=== PATIENT | female | born 1970 | race Caucasian/White ===

== ENCOUNTER → 2016-06-16 | Outpatient (CLI) | payer BC ==
--- NOTE | 2016-06-16 16:39 | Diagnostic Imaging Report ---
INDICATION: Digital mammogram bilateral screening. This study was compared to the prior exams of 03/24/15, 01/29/14 and 08/30/12. At this time, there are no current complaints. The current study was also evaluated with a Computer Aided Detection (CAD) system. FINDINGS: There are scattered fibroglandular densities in both breasts which could obscure a lesion. Overall, there does not appear to have been any significant change when compared to the prior exam. No primary or secondary sign of malignancy is noted. IMPRESSION: There is no radiographic evidence for malignancy. ACR BI-RADS Category 1: Negative. Result letter will be mailed to the patient. Note: At least 10% of breast cancer is not imaged by mammography. Dictated by: Dictated on workstation # [id number]
== END ==
LOC: RAD 07:14
PROVIDERS: ATTEND Obstetrics & Gynecology
DX: Z12.31 Encounter for screening mammogram for malignant neoplasm of breast (principal)

== ENCOUNTER → 2017-06-22 | Outpatient (CLI) | payer BC ==
--- NOTE | 2017-06-22 10:06 | Diagnostic Imaging Report ---
Indication: Routine screening. Comparison: Comparison is made with prior exams from 06/16/2016 and 03/24/2015. The current study was also evaluated with a Computer Aided Detection (CAD) system. Findings: Scattered fibroglandular densities are identified bilaterally. The parenchymal pattern is stable. No mass or malignant-appearing microcalcifications are seen. The axillae are unremarkable. Impression: BI-RADS category 1 No mammographic features suspicious for malignancy are identified. ACR BI-RADS Category 1: Negative. Result letter will be mailed to the patient. Note: At least 10% of breast cancer is not imaged by mammography. Dictated by: Dictated on workstation # [id number]
== END ==
LOC: RAD 08:18
PROVIDERS: ATTEND Obstetrics & Gynecology
DX: Z12.31 Encounter for screening mammogram for malignant neoplasm of breast (principal)
CPT/HCPCS: 77067

== ENCOUNTER → 2018-06-30 | Outpatient (CLI) | payer BC ==
--- NOTE | 2018-06-30 21:16 | Diagnostic Imaging Report ---
INDICATION: Routine screening. Comparison is made with prior mammogram from 06/22/2017 and 06/16/2016. 2-D and 3-D bilateral screening mammography was performed with CAD. The current study was also evaluated with a Computer Aided Detection (CAD) system. FINDINGS: Scattered fibroglandular densities are identified bilaterally. There is a density in the central right breast at the nipple line on the CC view which appears more prominent than prior exam. This may represent superimposed tissue but additional views are recommended. This appears to be inferiorly located on the MLO view. Left breast is unremarkable. No suspicious calcifications are seen. The axillae are unremarkable. IMPRESSION: Right breast density. Additional views including spot compression view, rolled CC views and mediolateral views are recommended for further evaluation. ACR BI-RADS Category 0: Incomplete. (Needs additional imaging evaluation). Result letter will be mailed to the patient. Note: At least 10% of breast cancer is not imaged by mammography. Dictated by: Dictated on workstation # [id number]
== END ==
LOC: RAD 07:48
PROVIDERS: ATTEND Obstetrics & Gynecology
DX: Z12.31 Encounter for screening mammogram for malignant neoplasm of breast (principal); R92.2 Inconclusive mammogram
CPT/HCPCS: 77067

== ENCOUNTER → 2018-07-06 | Outpatient (CLI) | payer BC ==
--- NOTE | 2018-07-06 19:12 | Diagnostic Imaging Report ---
INDICATION: Right breast density. Patient presents for additional views. COMPARISON: Correlation is made with the recent screening study from 06/30/2018. TECHNIQUE: Unilateral right 2D and 3D diagnostic mammography was performed including spot compression CC, rolled CC, and 90 degree lateral views. The current study was also evaluated with a Computer Aided Detection (CAD) system. FINDINGS: Density noted in the right breast on the CC view centrally appears to show normal dispersion with additional views consistent with superimposed tissue. No underlying mass lesion is seen. No suspicious calcifications are identified. IMPRESSION: Additional views fail to demonstrate a discrete mass. Patient may return to routine annual screening mammography. ACR BI-RADS Category 1: Negative. Result letter will be mailed to the patient. Note: At least 10% of breast cancer is not imaged by mammography. Dictated by: Dictated on workstation # [id number]
== END ==
LOC: RAD 13:00
PROVIDERS: ATTEND Obstetrics & Gynecology
DX: R92.2 Inconclusive mammogram (principal)

== ENCOUNTER 2018-07-12 05:34 | Outpatient (CLI) | payer BC ==
[~2018-07-12] VITALS: Ht 172.7 cm; Wt 111.1 kg
[2018-07-12] MEDS ORDERED: METO-387 PO (12:05)
[2018-07-12] MEDS ORDERED: ATOR40TA70 PO (12:05)
[2018-07-14] MEDS ORDERED: OXYC1TAB87 PO (14:29)
== END 2018-07-12 12:21 | disposition home or self-care (01) ==
LOC: PREOP 05:34
PROVIDERS: ATTEND Obstetrics & Gynecology
DX: Z01.818 Encounter for other preprocedural examination (principal)

== ENCOUNTER 2018-07-14 11:49 | Day surgery (SDC) | payer BC ==
[~2018-07-14] VITALS: Ht 172.7 cm; Wt 111.1 kg
[~2018-07-14 11:49] MED LIST: ATOR40TA70 PO; METO-387 PO
[2018-07-14] MEDS ORDERED: LACTATED RINGERS 1,000 ML IV PRN (12:28)
[2018-07-14] MEDS ORDERED: ceFAZolin INJECTION 1,000 MG in NS (IVPB) 50 ML IV ONE (12:30)
[2018-07-14] MEDS ORDERED: ceFAZolin 1,000 MG/SWFI 10 ML IV PUSH IV ONE ×2 (12:45)
[2018-07-14 12:47] LABS: BASOPHILS % (AUTO) 1 % (0-10); EOSINOPHILS # (AUTO) 0.1 10^3/uL (0.0-0.3); EOSINOPHILS % (AUTO) 1 % (0-10); HEMATOCRIT 40 % (35-52); HEMOGLOBIN 13.2 G/DL (11.5-16.0); LYMPHOCYTES # (AUTO) 1.5 X 10^3 (1.0-4.0); LYMPHOCYTES % (AUTO) 25 % (12-44); MEAN CORPUSCULAR HEMOGLOBIN 30 PG (25-34); MEAN CORPUSCULAR HGB CONC 33 G/DL (32-36); MEAN CORPUSCULAR VOLUME 90 FL (80-99); MEAN PLATELET VOLUME 10.2 FL (7.4-10.4); MONOCYTES # (AUTO) 0.5 X 10^3 (0.0-1.0); MONOCYTES % (AUTO) 8 % (0-12); NEUTROPHILS % (AUTO) 65 % (42-75); PLATELET COUNT 244 10^3/uL (130-400); RED CELL DISTRIBUTION WIDTH 13.6 % (10.0-14.5); WHITE BLOOD COUNT 6.1 10^3/uL (4.3-11.0)
[2018-07-14] MEDS ORDERED: ONDANSETRON 4 MG/2 ML (SDV) Z0FRAN ONE (12:48)
[2018-07-14] MEDS ORDERED: DEXAMETHASONE 10 MG/ML (DECADRON) 1 ML VIAL ONE (12:48)
[2018-07-14] MEDS ORDERED: SEVOFLURANE (ULTANE) 15 ML INHAL SOLN ONE ×3 (12:48→14:48)
[2018-07-14] MEDS ORDERED: LIDOCAINE PF 2% 5 ML (XYLOCAINE) VIAL ONE (12:48)
[2018-07-14] MEDS ORDERED: proPOfol 200 MG/20 ML (DIPRIVAN) VIAL IV ONE (12:48)
[2018-07-14] MEDS ORDERED: MIDAZOLAM 2 MG/2 ML (VERSED) VIAL ONE (12:49)
[2018-07-14] MEDS ORDERED: fentaNYL INJECTION 100 MCG/2 ML AMP ONE ×2 (12:49→14:51)
[2018-07-14 12:56] VITALS: BP 153/92
--- OUTSIDE RECORDS SUMMARY | 2018-07-14 13:50 | XMS REPORT | Continuity of Care Document ---
Author Author [facility] Organization [facility] Address Unknown Phone Unavailable Allergies Active Description Code Type Severity Reaction Onset Reported/Identified Relationship to Patient Clinical Status Yes BACTRIM MODERATE DERMATOLOGICAL - LUIS Yes NKANo Known Allergies NKA Miscellaneous Allergy Unknown N/A 09/16/2005 Yes No Known Drug Allergies [id number] Drug Allergy Unknown N/A 03/23/2007 Yes sulfamethoxazole [id number] Drug Allergy Mild HIVES 07/12/2018 Yes trimethoprim [id number] Drug Allergy Mild HIVES 07/12/2018 Medications There is no data. Problems Date Dx Coded Attending Type Code Diagnosis Diagnosed By 04/09/2015 ADE ROWELL MD, Ot N64.59 06/16/2016 Ot V76.12 OTH SCREEN MAMMO-MALIGN NEOPLASM OF RAZ 06/16/2016 ADE ROWELL MD Ot V76.12 OTH SCREEN MAMMO-MALIGN NEOPLASM OF RAZ 06/16/2016 ADE ROWELL MD Ot N64.59 OTHER SIGNS AND SYMPTOMS IN BREAST 06/16/2016 ADE ROWELL MD, Ot Z12.31 ENCNTR SCREEN MAMMOGRAM FOR MALIGNANT NE 06/18/2016 ADE ROWELL MD Ot Z12.31 ENCNTR SCREEN MAMMOGRAM FOR MALIGNANT NE 06/24/2016 ADE ROWELL MD Ot Z12.31 ENCNTR SCREEN MAMMOGRAM FOR MALIGNANT NE 08/30/2016 Ot V76.12 OTH SCREEN MAMMO-MALIGN NEOPLASM OF RAZ 08/30/2016 ADE ROWELL MD, Ot V76.12 OTH SCREEN MAMMO-MALIGN NEOPLASM OF RAZ 08/30/2016 ADE ROWELL MD Ot N64.59 OTHER SIGNS AND SYMPTOMS IN BREAST 08/30/2016 ADE ROWELL MD, Ot Z12.31 ENCNTR SCREEN MAMMOGRAM FOR MALIGNANT NE 05/27/2017 Ot V76.12 OTH SCREEN MAMMO-MALIGN NEOPLASM OF RAZ 05/27/2017 ADE ROWELL MD, Ot V76.12 OTH SCREEN MAMMO-MALIGN NEOPLASM OF RAZ 05/27/2017 ADE ROWELL MD, Ot N64.59 OTHER SIGNS AND SYMPTOMS IN BREAST 05/27/2017 ADE ROWELL MD, Ot Z12.31 ENCNTR SCREEN MAMMOGRAM FOR MALIGNANT NE 06/23/2017 ADE ROWELL MD, Ot Z12.31 ENCNTR SCREEN MAMMOGRAM FOR MALIGNANT NE 07/06/2017 ADE ROWELL MD, Ot Z12.31 ENCNTR SCREEN MAMMOGRAM FOR MALIGNANT NE 04/03/2018 Doris, Corazon W 272.8 OTHER DISORDERS OF LIPOID METABOLISM 04/03/2018 Doris, Corazon W 278.00 OBESITY, UNSPECIFIED 04/03/2018 Doris, Corazon W 401.9 UNSPECIFIED ESSENTIAL HYPERTENSION 04/03/2018 Doris, Corazon W E66.9 OBESITY, UNSPECIFIED 04/03/2018 Doris, Corazon W E78.5 HYPERLIPIDEMIA, UNSPECIFIED 04/03/2018 Doris, Corazon W I10 ESSENTIAL (PRIMARY) HYPERTENSION 04/03/2018 Doris, Corazon W 272.8 OTHER DISORDERS OF LIPOID METABOLISM 04/03/2018 Doris, Corazon W 278.00 OBESITY, UNSPECIFIED 04/03/2018 Doris, Corazon W 401.9 UNSPECIFIED ESSENTIAL HYPERTENSION 04/03/2018 Doris, Corazon W E66.9 OBESITY, UNSPECIFIED 04/03/2018 Doris, Corazon W E78.5 HYPERLIPIDEMIA, UNSPECIFIED 04/03/2018 Doris, Corazon W I10 ESSENTIAL (PRIMARY) HYPERTENSION 06/30/2018 ADE ROWELL MD, Ot V76.12 OTH SCREEN MAMMO-MALIGN NEOPLASM OF RAZ 06/30/2018 ADE ROWELL MD, Ot N64.59 OTHER SIGNS AND SYMPTOMS IN BREAST 06/30/2018 ADE ROWELL MD, Ot Z12.31 ENCNTR SCREEN MAMMOGRAM FOR MALIGNANT NE 06/30/2018 ADE ROWELL MD, Ot Z12.31 ENCNTR SCREEN MAMMOGRAM FOR MALIGNANT NE 07/03/2018 ADE ROWELL MD Ot R92.2 INCONCLUSIVE MAMMOGRAM 07/03/2018 ADE ROWELL MD Ot Z12.31 ENCNTR SCREEN MAMMOGRAM FOR MALIGNANT NE 07/06/2018 ADE ROWELL MD Ot R92.2 INCONCLUSIVE MAMMOGRAM Procedures There is no data. Results Test Result Range Comprehensive Metabolic Panel - 04/03/18 09:00 Albumin 4.0 g/dL 3.6-5.1 ALP 47 U/L 35-130 ALT 21 U/L 6-45 Anion Gap 13 6-14 AST 21 U/L 2-40 BUN 15 mg/dL 5-25 Calcium 9.1 mg/dL 8.3-10.4 Chloride 109 mmol/L 95-114 CO2 21 mEq/L 22-33 Creat 0.64 mg/dL 0.50-1.50 eGFR 100 mL/min/1.73m2 >59 Globulin 2.5 g/dL 2.3-3.5 Glucose 85 mg/dL 70-110 Osmo 287 280-295 Potassium 3.9 mmol/L 3.5-5.3 Sodium 139 mmol/L 134-148 TBil 0.4 mg/dL 0.2-1.2 TP 6.5 g/dL 6.0-8.3 Urine beta human chorionic gonadotropin (hCG) measurement - 07/14/18 11:55 Urine beta human chorionic gonadotropin (hCG) measurement NEGATIVE NEGATIVE Encounters ACCT No. Visit Date/Time Discharge Status Pt. Type Provider Facility Loc./Unit Complaint [id number] 07/12/2018 05:34:00 07/12/2018 12:21:00 DIS Outpatient ADE ROWELL MD [facility] PREOP HYSTEROSCOPY WITH D C AND ABLATION [id number] 07/06/2018 13:00:00 07/06/2018 23:59:59 CLS Outpatient ADE ROWELL MD [facility] RAD ABN MAMMO [id number] 06/30/2018 07:48:00 06/30/2018 23:59:59 CLS Outpatient ADE ROWELL MD [facility] RAD SCREENING [id number] 06/22/2017 08:18:00 06/22/2017 23:59:59 CLS Outpatient ADE ROWELL MD [facility] RAD ROUTINE SCREENING [id number] 06/16/2016 07:14:00 06/16/2016 23:59:59 CLS Outpatient ADE ROWELL MD [facility] RAD SCREENING [id number] 2015 08:13:00 2015 23:59:59 CLS Outpatient ADE ROWELL MD [facility] RAD THICKENING [id number] 02/08/2014 09:40:00 02/08/2014 23:59:59 CLS Outpatient ADE ROWELL MD [facility] RAD SCREENING [id number] 07/14/2018 11:49:00 ACT Outpatient ADE ROWELL MD [facility] DYSFUNCTIONAL UTERINE BLEEDING; INTRA-UTERINE MASS [id number] 08/30/2012 08:58:00 Document Registration [id number] 04/03/2018 09:51:00 04/03/2018 23:59:00 DIS Outpatient Corazon George
--- NOTE | 2018-07-14 14:25 | Progress Note-Pre Operative ---
Pre-Operative Progress Note H&P Reviewed The H&P was reviewed, patient examined and no changes noted. Date Seen by Provider: Jul 14, 2018 Time Seen by Provider: 14:25 Date H&P Reviewed: Jul 14, 2018 Time H&P Reviewed: 14:25 Pre-Operative Diagnosis: dub/Menorrhagia/pelvic mass ADE ROWELL MD Jul 14, 2018 14:25
[2018-07-14] MEDS ORDERED: D5 LR IV SOLUTION 1,000 ML IV SCH (14:26)
--- NOTE | 2018-07-14 14:26 | Progress Note-Post Operative ---
Post-Operative Progess Note Surgeon (s)/Housing Court Judge (s) Surgeon ADE ROWELL MD Housing Court Judge: None Pre-Operative Diagnosis dub/Menorrhagia/pelvic mass Post-Operative Diagnosis Same with pathology pending Procedure & Operative Findings Date of Procedure 07/14/18 Procedure Performed/Findings Hysteroscopy with directed biopsy and D&C followed by global endometrial ablation using rollerball Anesthesia Type GETA Estimated Blood Loss Estimated blood loss (mL): MINIMAL Specimens/Packing Specimens Removed Directed endometrial biopsy of intrauterine masses and endometrial curettings Packing: None required ADE ROWELL MD Jul 14, 2018 14:26
[2018-07-14] MEDS ORDERED: OXYC1TAB87 PO (14:29)
[2018-07-14] MEDS ORDERED: oxyCODONE/APAP 5/325MG (PERCOCET 5) TABLET PO PRN (14:30)
[2018-07-14] MEDS ORDERED: KETOROLAC 30 MG/ML VIAL IVP ONE (14:30)
[2018-07-14] MEDS ORDERED: MEPERIDINE (DEMEROL) INJ 100 MG/ML IM ONE (14:30)
[2018-07-14] MEDS ORDERED: PROMETHAZINE INJ 25 MG/ML (PHENERGAN) AMP IM ONE (14:30)
[2018-07-14] MEDS ORDERED: ONDANSETRON 4 MG/2 ML (SDV) Z0FRAN IVP PRN ×2 (14:30→14:45)
--- NOTE | 2018-07-14 14:30 | Discharge Instructions ---
Discharge Instructions Discharge Medications New, Converted or Re-Newed RX: RX on Chart Patient Instructions Patient Instructions: As directed Return to The Hospital For: As directed Activity & Diet Discharge Diet: No Restrictions Activity as Tolerated: No Orders-Post D/C & Referrals Follow Up Appt: Call to make follow up appt. for patient in 2 weeks. Diet: As tolerated-Clear Liquids only if nauseated. shower or tub bathe as desired. No driving for 24 hours, no alcoholic beverages for 24 hours, and nothing per vagina (no tampons, douching, or intercourse) for 2 weeks. Patient to return to the clinic as soon as possible for: Temperature greater than 101F, Severe Pain, Foul discharge from incision or vagina, Excessive Bleeding (more than a period). ADE ROWELL MD Jul 14, 2018 14:30
[2018-07-14] MEDS ORDERED: morphine INJ 10 MG/ML 1ML (SYR OR VIAL) IVP ONE (14:45)
[2018-07-14] MEDS ORDERED: LABETALOL HCL 20 MG/4 ML VIAL ONE ×2 (14:47→15:14)
[2018-07-14] MEDS: LABETALOL HCL 20 MG/4 ML VIAL IV PRN ×4 (15:21→15:48)
[2018-07-14] MEDS ORDERED: KETOROLAC 30 MG/ML VIAL ONE (15:32)
[2018-07-14] MEDS ORDERED: morphine INJ 10 MG/ML 1ML (SYR OR VIAL) ONE (15:57)
[2018-07-14] MEDS ORDERED: hydrALAZINE (APESOLINE) 20 MG/ML VIAL ONE (16:24)
[2018-07-14] MEDS: hydrALAZINE (APESOLINE) 20 MG/ML VIAL IV PRN ×4 (16:30→17:00)
[2018-07-14 17:15] VITALS: BP 161/90
[2018-07-14 17:45] VITALS: BP 130/88
[2018-07-14 18:05] VITALS: BP 123/78
--- NOTE | 2018-07-15 01:53 | OPERATIVE REPORT ---
DATE OF SERVICE: 07/14/2018 PREOPERATIVE DIAGNOSES: Dysfunctional uterine bleeding, menorrhagia and intrauterine mass. POSTOPERATIVE DIAGNOSES: Dysfunctional uterine bleeding, menorrhagia and intrauterine mass with pathology pending. OPERATIVE PROCEDURE: Hysteroscopy with directed biopsy and D and C followed by global endometrial ablation using the rollerball. OPERATIVE DESCRIPTION: With the patient in the supine position under satisfactory general anesthesia, she was prepped and draped in the usual fashion for vaginal surgery after being repositioned in the dorsal lithotomy position in the [facility]. Weighted speculum was placed in posterior fornix of vagina, cervix exposed and grasped anteriorly with single tooth tenaculum. Uterus was sounded to 9 cm with uterine sound. The cervix was then serially dilated with Anshul dilators to accommodate a hysteroscope, which was introduced using glycine as a distending medium, the endometrial cavity was examined. There was polypoid tissue emanating from probably half of the posterior uterine wall anterior surface. Supervising Producer biopsies were taken and labeled as directed biopsy and sent to pathology for permanent section. The endometrial cavity was then sharply curettaged in all 4 quadrants to good uterine cry and that tissue sent for permanent section as endometrial curettings as well. The hysteroscope was now converted to a resectoscope and again using glycine as distending medium, the endometrial cavity was examined and then using the rollerball with the power set at 55 contreras of energy. The endometrial cavity was ablated with the rollerball starting first on the anterior surface and extending laterally to the 9 and 3 o'clock position on each side, taking care to ensure coverage of the apex of the endometrial cavity . The resectoscope was then inverted and the posterior intrauterine endometrial cavity wall was ablated using the rollerball as well. Good thermal artifact was achieved. There was minimal bleeding during the procedure, but even that bleeding was controlled with the cautery in the process of the ablation. When the endometrial cavity was completely ablated up to and into the tubal ostia bilaterally and down into the internal cervical os, the procedure was terminated. The operative instruments were removed as was the tenaculum. There was some bleeding from one of the puncture sites from the tenaculum that was touched with silver nitrate to affect the hemostasis. There was no bleeding from the cervical os. Sponge and needle counts were correct at the end of procedure. Estimated blood loss was minimal. A total of 2700 mL of glycine was used as distending medium, almost that same amount was recovered and the balance was mostly dripped on the floor. The patient was uneventfully awakened from general anesthesia and transferred to recovery room in stable condition. Job ID: [id number] DocumentID: [id number] Dictated Date: 07/14/2018 15:06:58 Airfield Operations Specialist Date: 07/15/2018 01:53:15 Dictated By: ADE ROWELL MD
== END 2018-07-14 18:05 | disposition home or self-care (01) ==
LOC: SDC 11:49
PROVIDERS: ATTEND Obstetrics & Gynecology
DX: N93.8 Other specified abnormal uterine and vaginal bleeding (principal); N92.0 Excessive and frequent menstruation with regular cycle; N85.9 Noninflammatory disorder of uterus, unspecified; I10 Essential (primary) hypertension; Z79.899 Other long term (current) drug therapy
CPT/HCPCS: 36415; 84703; 85025; 87081; 94664

== ENCOUNTER → 2019-07-23 | Outpatient (CLI) | payer BC ==
[~2019-07-23] MED LIST changes: -METO-387 PO; +MTP25TSR PO; +OXYC1TAB87 PO
--- NOTE | 2019-07-23 10:21 | Diagnostic Imaging Report ---
EXAMINATION: Digital mammogram INDICATION: Bilateral screening. This study was compared with prior exams of 06/30/2018, 06/22/2017 and 06/16/2016. At this time there are no current complaints. The current study was also evaluated with a Computer Aided Detection (CAD) system. FINDINGS: There are scattered fibroglandular densities in both breasts which could obscure a lesion. Overall, there does not appear to have been any significant change when compared to the prior exam. No primary or secondary sign of malignancy is noted. IMPRESSION: There is no radiographic evidence for malignancy. ACR BI-RADS Category 1: Negative. Result letter will be mailed to the patient. Note: At least 10% of breast cancer is not imaged by mammography. Dictated by: Dictated on workstation # [id number]
== END ==
LOC: RAD 07:23
PROVIDERS: ATTEND Obstetrics & Gynecology
DX: Z12.31 Encounter for screening mammogram for malignant neoplasm of breast (principal)
CPT/HCPCS: 77067

== ENCOUNTER → 2021-01-15 | Outpatient (CLI) | payer BC ==
--- NOTE | 2021-01-15 09:29 | Diagnostic Imaging Report ---
Indication: Routine screening. Comparison is made with prior mammogram from 07/23/2019 and 06/30/2018. 2-D and 3-D bilateral screening mammography was performed with CAD. Scattered fibroglandular densities are identified bilaterally. The parenchymal pattern is stable. There are scattered benign calcifications. No mass or malignant-appearing microcalcifications are seen. Axillae are unremarkable. IMPRESSION: BI-RADS Category 2 No mammographic features suspicious for malignancy are identified. ACR BI-RADS Category 2: Benign findings. Result letter will be mailed to the patient. Note: At least 10% of breast cancer is not imaged by mammography. Dictated by: Dictated on workstation # [id number]
== END ==
LOC: RAD 07:30
PROVIDERS: ATTEND Obstetrics & Gynecology
DX: Z12.31 Encounter for screening mammogram for malignant neoplasm of breast (principal)
CPT/HCPCS: 77063; 77067

== ENCOUNTER → 2022-02-02 | Outpatient (CLI) | payer BC ==
--- NOTE | 2022-02-02 12:50 | Diagnostic Imaging Report ---
Indication: Routine screening. Comparison is made with prior mammogram 01/15/2021 and 07/23/2019. 2-D and 3-D bilateral screening mammography was performed with CAD. CAD is utilized. The current study was also evaluated with a Computer Aided Detection (CAD) system. Scattered fibroglandular densities are identified bilaterally. The parenchymal pattern is stable. There are benign calcifications. No mass or malignant-appearing microcalcifications are seen. Axillae are unremarkable. IMPRESSION: BI-RADS Category 2 No mammographic features suspicious for malignancy are identified. ACR BI-RADS Category 2: Benign findings. Result letter will be mailed to the patient. Note: At least 10% of breast cancer is not imaged by mammography. Dictated by: Dictated on workstation # [id number]
== END ==
LOC: RAD 07:18
PROVIDERS: ATTEND Obstetrics & Gynecology
DX: Z12.31 Encounter for screening mammogram for malignant neoplasm of breast (principal)
CPT/HCPCS: 77063; 77067